=== PATIENT | female | born 1940 | race Caucasian/White ===

== ENCOUNTER 2021-10-17 10:30 | Outpatient (RCR) | payer MEDICARE, OTHER, SELFPAY ==
--- NOTE | 2021-09-05 10:55 | PT.OPEX ---
PT [place] Outpatient Eval PT [facility] Outpatient Eval Start: 09/05/21 07:16 Freq: Status: Active Protocol: Document 09/05/21 07:16 SHILPI (Rec: 09/05/21 09:31 KLV [id number]) E-Signed By Tri Sadler, PT Physical Therapy Outpatient Evaluation Insurance Information Recert Due Date 12/04/21 Insurance Name Medicare B,[employer] Medical Diagnosis right ankle bimalleolar ORIF, closed treatment posterior malleolus fracture, right ankle syndesmosis stabilization with tightrope Treating Diagnosis Right ankle pain, limited ankle ROM, impaired ankle strength, impaired gait, impaired balance Referring MD Norris Subjective Subjective Patient presents to PT postoperative right ankle bimalleolar ORIF, closed treatment posterior malleolus fracture, right ankle syndesmosis stabilization with tightrope (date of surgery: 08/08/2021). She was diagnosed with L LE DVT following surgery and treated for this through [facility]. She had a follow up with Dr. Kennedy this morning who feels that she is recovering well from DVT and no concern at this time. She will remain on blood thinner until October. She had follow up with OUMOU Watts 08/24/21 who fitted her with a CAM boot, advised to slowly transition into weight bear as tolerated and a PT referral provided to work on range of motion, swelling/edema control , quad strengthening. Continue working now on ankle range of motion during sedentary activities. Come out of the boot for bathing. Patient presents to PT with CAM boot donned and ambulating with FWW . She is independent on stairs with step to pattern. Patient to wear CAM boot for another 4 weeks following clinical reassessment by Dr. Norris. She has been managing pain without medication and rarely taking tylenol at this time. She has not been icing but has kept tubigrip donned. Pain Comments 4/10 worst following surgery 0/10 today Date of Last Physician Visit 08/24/21 Date of Next Physician Visit 09/28/21 Date of Surgery (If applicable) 08/08/21 Current Work Status Retired Precautions Weight Bearing Status Weight Bear as Tolerated Therapy Limitations/Systems Review Not Limited Objective Other/Pertinent Objective Ankle ROM (R/L): -DF (knee straight): neutral/8 -PF: -Inv: 09/07 -Juliana: Ankle figure 8 swelling: mild swelling R ankle, moderate swelling L LE -R 39cm -L 38cm Clay sign: - B Observation: incisions covered with steri strips laterally and surgical glue medially, incisions healing well and no signs/symptoms of infection ( no erythema, no streaking). Mild ecchymosis surrounding medial incision Quad activation: good Gait: ambulating with CAM boot and FWW with good stride length and heel to toe, WBAT, pelvis level with use of platform elevated shoe on L LE Functional Test Performed & Score LEFS: Assessment Assessment/Impression Patient is an 81 year old female presenting to physical therapy 1 month s/p right ankle bimalleolar ORIF, closed treatment posterior malleolus fracture, right ankle syndesmosis stabilization with tightrope. Patient presents with expected limitations in ankle mobility, strength, balance and swelling. These impairments are limiting the patients ability to Walking without AD, stair negotiation, donning/doffing shoes and socks, bathing/balance. Patient appears motivated to participate in PT and presents with good prognosis to improve mobility, strength, proprioception and return to functional activities with skilled physical therapy intervention. Primary Functional Limitations Walking without AD, stair negotiation, donning/doffing shoes and socks, bathing/ balance Plan of Care Rehabilitation Potential Good Physical Therapy Goals By 4 weeks (10/03/21) Pt will demonstrate WFL and pain free ankle ROM in order to perform all ADLs including don/doffing shoes/socks Pt will tolerate gradual weaning from CAM boot with <2/ 10 pain By 12 weeks (11/28/21) Pt will exhibit 9 pt improvement in LEFS Outcome measure to demonstrate functional improvement and progress towards goals. Pt will tolerate gradual progression back to ADLs with <2/10 pain Patient will transition from walker to cane to independent gait with normal mechanics. Treatment Plan/Direct Interventions Gait Training,Ice/Cold/ Vasopneumatic,Joint Mobilization,Manual Therapy, Neuromuscular Re-ed,Self-Care/ Home Management,Therapeutic Activities,Therapeutic Exercises Frequency/Duration 1x/wk for 8 weeks with additional 4 sessions prn based on progress Patient Will Be Discharged From Therapy Completion of LTG(s), Independent w/HEP, Independently Progressing Evaluation Billing Untimed Code Treatment Minutes 18 Complexity Low Certification Information Initial Certification Date 09/05/21 Ending Certification Date 12/04/21
== END 2021-10-18 13:58 | disposition home or self-care (01) ==
PROVIDERS: Visit Provider Physician Assistant Surgical
DX: M25.571 Pain in right ankle and joints of right foot (principal); R26.9 Unspecified abnormalities of gait and mobility; Z51.89 Encounter for other specified aftercare
CPT/HCPCS: 97110; 97112; 97116; 97140; 97161

== ENCOUNTER 2024-01-02 08:21 | Outpatient (CLI) | payer MEDICARE, OTHER, SELFPAY ==
--- NOTE | 2024-01-02 09:47 | P.ANES_ITS ---
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
--- NOTE | 2024-01-02 09:53 | W.ANESCHARGE ---
Anesthesia Charges Start Date/Time Anesthesia Start Date: 01/02/24 Anesthesia Start Time: 09:17 Stop Date/Time Anesthesia Stop Date: 01/02/24 Anesthesia Stop Time: 09:44 Summary Extremes of Age - Over 70 or under 1: MDA
== END 2024-01-02 08:22 | disposition home or self-care (01) ==
LOC: OP CLINIC 08:24
PROVIDERS: PCP Family Medicine; Visit Provider Internal Medicine Gastroenterology
DX: Z12.11 Encounter for screening for malignant neoplasm of colon (principal); Z86.0101 Personal history of adenomatous and serrated colon polyps; D12.2 Benign neoplasm of ascending colon; D12.5 Benign neoplasm of sigmoid colon; K64.8 Other hemorrhoids
CPT/HCPCS: 00811; 45380; 45385; 88305; 99100; J2704